=== PATIENT | female | born 1945 | race Caucasian/White ===

== ENCOUNTER 2016-07-19 16:24 | Emergency (ER) | payer MEDICARE ==
[2016-07-19] MEDS ORDERED: NS 0.9% 1000 ML* 1,000 ML IV SCH (18:45)
[2016-07-19 19:01] LABS: Hematocrit 45 % (35-47); Hemoglobin 15.5 g/dl (12.0-16.0); Mean Corpuscular HGB Conc 34 g/dl (31-36); Mean Corpuscular Hemoglobin 29 pg (27-31); Mean Corpuscular Volume 85 fL (80-97); Mean Platelet Volume 10 um3 (7.4-10.4); Red Blood Count 5.35 10^6/ul (4.0-5.4); Red Cell Distribution Width 15 % (10.5-15); White Blood Count 7.7 10^3/ul (3.5-10.8)
--- NOTE | 2016-07-19 19:02 | RAD ---
Indication: Dizziness. Single frontal view of the chest performed at 1842 hours was reviewed. No prior study is available for comparison. No mediastinal shift is noted. Heart is of normal size and configuration. Lung joiner appear clear. IMPRESSION: NO ACTIVE CARDIOPULMONARY DISEASE IS NOTED.
[2016-07-19 19:17] LABS: ALT 15 U/L (7-52); Albumin 3.9 g/dL (3.2-5.2); Alkaline Phosphatase 78 U/L (34-104); BUN/Creatinine Ratio 18.3 (8-20); Blood Urea Nitrogen 21 mg/dL (6-24); C Reactive Protein 1.55 mg/L (< 5.00); CO2 Carbon Dioxide 26 mmol/L (22-32); Calcium 9.6 mg/dL (8.6-10.3); Chloride 106 mmol/L (101-111); Creatine Kinase 80 U/L (10-223); EGFR Non-African American 46.6 (>60); Globulin 2.9 g/dL (2-4); Glucose 124 mg/dL (70-100); Lipase 26 U/L (11.0-82.0); Magnesium 2.4 mg/dL (1.9-2.7); Sodium 138 mmol/L (133-145); Total Protein 6.8 g/dL (6.4-8.9)
[2016-07-19 19:29] LABS: TSH (Thyroid Stimulating Horm) 0.37 mcIU/mL (0.34-5.60)
--- NOTE | 2016-07-19 21:49 | RAD ---
Indication: Dizziness. CT of the brain was performed without IV contrast. Ventricular structures are midline. No midline shift is noted. The extraction spaces are unremarkable. There is no evidence of intracranial mass or hemorrhage. No other high or low density lesions are identified. Mastoid air cells and paranasal sinuses are unremarkable. IMPRESSION: No intracranial mass or hemorrhage is noted.
[2016-07-19 22:46] VITALS: BP 116/70
--- NOTE | 2016-07-20 03:29 | ED ---
Osman Patel Claudia, scribed for Joseph Bellamy on 07/19/16 at 2022 . Complex/Multi-Sys Presentation - HPI Summary HPI Summary: 71 year old female presents to the ED with dizziness and skin diaphoresis. Pt notes she was at work this pm when she had an episode lasting a few minutes including dizziness and skin diaphoresis. Pt does not think she had any LOC. PMHx of AFib is noted. Pt denies any CP, SOB, with episode. - History Of Current Complaint Chief Complaint: EDDizziness Time Seen by Provider: 07/19/16 19:42 Hx Obtained From: Patient Onset/Duration: Sudden Onset, Resolved Timing: Intermittent, Lasting: - 10 minutes Associated Signs And Symptoms: Positive: Dizziness, Diaphoresis - Allergies/Home Medications Allergies/Adverse Reactions: Allergies Allergy/AdvReac Type Severity Reaction Status Date / Time Adhesive Tape Allergy Unknown Verified 02/23/16 09:40 Reaction Details Codeine Allergy Nausea And Verified 02/23/16 09:40 Vomiting Dronedarone [From Multaq] Allergy Unknown Verified 02/23/16 09:40 Reaction Details Latex Allergy Rash Verified 02/23/16 09:40 Lisinopril Allergy Unknown Verified 02/23/16 09:40 Reaction Details Metoprolol Allergy Unknown Verified 02/23/16 09:40 Reaction Details Nickel Allergy Unknown Verified 02/23/16 09:40 Reaction Details PMH/Surg Hx/FS Hx/Imm Hx Previously Healthy: Yes Endocrine/Hematology History: Denies: Hx Diabetes Cardiovascular History: Reports: Hx Hypertension Denies: Hx Pacemaker/ICD History: Denies: Hx Renal Disease Sensory History: Denies: Hx Hearing Aid Psychiatric History: Denies: Hx Panic Disorder - Cancer History Cancer Type, 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 Negative: Fever Eyes: Negative ENT: Negative Cardiovascular: Negative Negative: Chest Pain Respiratory: Negative Gastrointestinal: Negative Genitourinary: Negative Musculoskeletal: Negative Skin: Negative Neurological: Other - dizzy Psychological: Normal All Other Systems Reviewed And Are Negative: Yes Physical Exam Triage Information Reviewed: Yes Vital Signs On Initial Exam: Initial Vitals Temp Pulse Resp BP Pulse Ox 97.2 F 57 18 120/73 98 07/19/16 16:45 07/19/16 16:45 07/19/16 16:45 07/19/16 16:45 07/19/16 16:45 Vital Signs Reviewed: Yes Appearance: Positive: Well-Appearing, No Pain Distress Skin: Positive: Warm, Skin Color Reflects Adequate Perfusion, Dry Head/Face: Positive: Normal Head/Face Inspection Eyes: Positive: EOMI, CAR ENT: Positive: Normal ENT inspection Neck: Positive: Supple, Nontender Respiratory/Lung Sounds: Positive: Clear to Auscultation, Breath Sounds Present Cardiovascular: Positive: RRR, Pulses are Symmetrical in both Upper and Lower Extremities Abdomen Description: Positive: Nontender, Soft Musculoskeletal: Positive: Normal, Strength/ROM Intact Neurological: Positive: Normal, Sensory/Motor Intact, Alert, Oriented to Person Place, Time Diagnostics - Vital Signs Vital Signs Temp Pulse Resp BP Pulse Ox 07/19/16 19:00 54 13 96 07/19/16 18:00 58 16 96 07/19/16 17:00 64 12 95 07/19/16 16:59 56 12 95 07/19/16 16:45 97.2 F 57 18 120/73 98 - Laboratory Lab Results: Lab Results 07/19/16 07/19/16 07/19/16 Range/Units 17:25 17:25 17:25 WBC 7.7 (3.5-10.8) 10^3/ul RBC 5.35 (4.0-5.4) 10^6/ul Hgb 15.5 (12.0-16.0) g/dl Hct 45 (35-47) % MCV 85 (80-97) fL MCH 29 (27-31) pg MCHC 34 (31-36) g/dl RDW 15 (10.5-15) % Plt Count 206 (150-450) 10^3/ul MPV 10 (7.4-10.4) um3 Neut % (Auto) 65.0 (38-83) % Lymph % (Auto) 24.8 L (25-47) % Morrill % (Auto) 8.4 (1-9) % Eos % (Auto) 1.1 (0-6) % Baso % (Auto) 0.7 (0-2) % Absolute Neuts (auto) 5.0 (1.5-7.7) 10^3/ul Absolute Lymphs (auto) 1.9 (1.0-4.8) 10^3/ul Absolute Monos (auto) 0.6 (0-0.8) 10^3/ul Absolute Eos (auto) 0.1 (0-0.6) 10^3/ul Absolute Basos (auto) 0.1 (0-0.2) 10^3/ul Absolute Nucleated RBC 0.01 10^3/ul Nucleated RBC % 0.1 INR (Anticoag Therapy) 2.60 H (0.89-1.11) APTT 31.3 (26.0-36.3) seconds Sodium 138 (133-145) mmol/L Potassium TNP Chloride 106 (101-111) mmol/L Carbon Dioxide 26 (22-32) mmol/L Anion Gap TNP BUN 21 (6-24) mg/dL Creatinine 1.15 H (0.51-0.95) mg/dL Est GFR ( Amer) 60.0 (>60) Est GFR (Non-Af Amer) 46.6 (>60) BUN/Creatinine Ratio 18.3 (8-20) Glucose 124 H (70-100) mg/dL Lactic Acid (0.5-2.0) mmol/L Calcium 9.6 (8.6-10.3) mg/dL Magnesium 2.4 (1.9-2.7) mg/dL Total Bilirubin 0.60 (0.2-1.0) mg/dL AST TNP ALT 15 (7-52) U/L Alkaline Phosphatase 78 (34-104) U/L Total Creatine Kinase 80 (10-223) U/L CK-MB (CK-2) 3.6 (0.6-6.3) ng/mL Troponin I 0.00 (<0.04) ng/mL C-Reactive Protein 1.55 (< 5.00) mg/L B-Natriuretic Peptide ( - 100) pg/mL Total Protein 6.8 (6.4-8.9) g/dL Albumin 3.9 (3.2-5.2) g/dL Globulin 2.9 (2-4) g/dL Albumin/Globulin Ratio 1.3 (1-3) Lipase 26 (11.0-82.0) U/L TSH 0.37 (0.34-5.60) mcIU/mL 07/19/16 07/19/16 Range/Units 17:25 17:25 WBC (3.5-10.8) 10^3/ul RBC (4.0-5.4) 10^6/ul Hgb (12.0-16.0) g/dl Hct (35-47) % MCV (80-97) fL MCH (27-31) pg MCHC (31-36) g/dl RDW (10.5-15) % Plt Count (150-450) 10^3/ul MPV (7.4-10.4) um3 Neut % (Auto) (38-83) % Lymph % (Auto) (25-47) % Morrill % (Auto) (1-9) % Eos % (Auto) (0-6) % Baso % (Auto) (0-2) % Absolute Neuts (auto) (1.5-7.7) 10^3/ul Absolute Lymphs (auto) (1.0-4.8) 10^3/ul Absolute Monos (auto) (0-0.8) 10^3/ul Absolute Eos (auto) (0-0.6) 10^3/ul Absolute Basos (auto) (0-0.2) 10^3/ul Absolute Nucleated RBC 10^3/ul Nucleated RBC % INR (Anticoag Therapy) (0.89-1.11) APTT (26.0-36.3) seconds Sodium (133-145) mmol/L Potassium Chloride (101-111) mmol/L Carbon Dioxide (22-32) mmol/L Anion Gap BUN (6-24) mg/dL Creatinine (0.51-0.95) mg/dL Est GFR ( Amer) (>60) Est GFR (Non-Af Amer) (>60) BUN/Creatinine Ratio (8-20) Glucose (70-100) mg/dL Lactic Acid 1.4 (0.5-2.0) mmol/L Calcium (8.6-10.3) mg/dL Magnesium (1.9-2.7) mg/dL Total Bilirubin (0.2-1.0) mg/dL AST ALT (7-52) U/L Alkaline Phosphatase (34-104) U/L Total Creatine Kinase (10-223) U/L CK-MB (CK-2) (0.6-6.3) ng/mL Troponin I (<0.04) ng/mL C-Reactive Protein (< 5.00) mg/L B-Natriuretic Peptide 106 H ( - 100) pg/mL Total Protein (6.4-8.9) g/dL Albumin (3.2-5.2) g/dL Globulin (2-4) g/dL Albumin/Globulin Ratio (1-3) Lipase (11.0-82.0) U/L TSH (0.34-5.60) mcIU/mL Result Diagrams: 07/19/16 17:25 07/19/16 17:25 Lab Statement: Any lab studies that have been ordered have been reviewed, and results considered in the medical decision making process. - Radiology CXR Xray Interpretation: No Acute Changes Radiology Interpretation Completed By: Radiologist - CT BRAIN CT CT Interpretation: No Acute Changes - NO INTRACRANIAL MASS OR HEMMORHAGE IS NOTED. CT Interpretation Completed By: Radiologist - EKG 22:05 Cardiac Rate: NL EKG Rhythm: Sinus Rhythm - SINUS ARRYTHMIA Re-Evaluation - Re-Evaluation 1 Re-Evaluation Time: 22:14 Comment: RESULTS ARE DISCUSSED WITH PT AND SHE IS AGREEABLE WITH THE PLAN TO BE D/C HOME WITH F/O Complex Multi-Symp Course/Dx Assessment/Plan: AFTER WORKUP INCLUDING CXR ABD EKG AND CT BRAIN PT IS AGREEABLE WITH THE PLAN TO BE D/C HOME WIHT F/O WITH PCP THIS WEEK. - Diagnoses Provider Diagnoses: Dizziness Discharge - Discharge Plan Condition: Stable Disposition: HOME Patient Education Materials: Dizziness (ED) Referrals: Tonja Dowling MD [Primary Care Provider] - 3 Days The documentation as recorded by the Osman martinez Claudia accurately reflects the service I personally performed and the decisions made by , Joseph Bellamy.
== END 2016-07-19 22:44 | disposition home or self-care (01) ==
LOC: ED 16:24
DX: R42 Dizziness and giddiness (principal); Z86.79 Personal history of other diseases of the circulatory system
CPT/HCPCS: 36415; 70450; 71010; 80053; 82550; 82553; 83605; 83690; 83735; 83880; 84443; 84484; 85025; 85610; 85730; 86140; 93005; 96360; 99283

== ENCOUNTER 2016-12-26 04:59 | Emergency (ER) | payer MEDICARE ==
--- NOTE | 2016-12-26 05:39 | ED ---
Heath Patel Alok, scribed for Ethan Cook MD on 12/26/16 at 0523 . HPI Chest Pain - HPI Summary HPI Summary: 71F presents to the ED with CP since 02:30 this evening. Pt states that her CP is at the mid-sternal and still ongoing, described as an achy sensation. Pt states she has never had this pain before. Pt recently had a pacemaker put in place yesterday at [facility] for her A-fib and states she experienced a right shoulder pain afterwards. Pt took tramadol and tylenol yesterday for her shoulder pain. Pt is unable to take aspirin since she is on xareolto. Pt sees survey research teacher Dr. Levy. - History of Current Complaint Chief Complaint: EDChestPainROMI Time Seen by Provider: 12/26/16 05:15 Hx Obtained From: Patient Onset/Duration: Started Hours Ago, Atraumatic, Still Present Time of Onset: 02:30 Timing: Constant Initial Severity: Moderate Current Severity: Moderate Pain Intensity: 6 Pain Scale Used: 0-10 Numeric Chest Pain Location: Discrete at:, Mid Sternal Character: Dull/Aching Aggravating Factor(s): Nothing Alleviating Factor(s): Nothing Associated Signs and Symptoms: Positive: Chest Pain - Allergy/Home Medications Allergies/Adverse Reactions: Allergies Allergy/AdvReac Type Severity Reaction Status Date / Time Adhesive Tape Allergy Unknown Verified 02/23/16 09:40 Reaction Details Codeine Allergy Nausea And Verified 02/23/16 09:40 Vomiting Dronedarone [From Multaq] Allergy Unknown Verified 02/23/16 09:40 Reaction Details Latex Allergy Rash Verified 02/23/16 09:40 Lisinopril Allergy Unknown Verified 02/23/16 09:40 Reaction Details Metoprolol Allergy Unknown Verified 02/23/16 09:40 Reaction Details Nickel Allergy Unknown Verified 02/23/16 09:40 Reaction Details PMH/Surg Hx/FS Hx/Imm Hx Endocrine/Hematology History: Denies: Hx Diabetes Cardiovascular History: Reports: Hx Hypertension Denies: Hx Pacemaker/ICD History: Denies: Hx Renal Disease Sensory History: Denies: Hx Hearing Aid Psychiatric History: Denies: Hx Panic Disorder - Cancer History Cancer Type, 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 Hx Chemotherapy: No Hx Radiation Therapy: Yes - Surgical History Surgery Procedure, Year, and Place: Left Breast Lumpectomy 1998, Complete Hysterectomy 1999 Infectious Disease History: No Infectious Disease History: Denies: Traveled Outside the [place] in Last 30 Days - Family History Known Family History: Negative: Hypertension, Diabetes - Social History Occupation: Retired Lives: With Family Alcohol Use: None Substance Use Type: Reports: None Smoking Status (MU): Never Smoked Tobacco Review of Systems Positive: Chest Pain Positive: Other - right shoulder pain All Other Systems Reviewed And Are Negative: Yes Physical Exam Triage Information Reviewed: Yes Vital Signs On Initial Exam: Initial Vitals Temp Pulse Resp BP Pulse Ox 97.9 F 60 20 142/82 100 12/26/16 05:11 12/26/16 05:11 12/26/16 05:11 12/26/16 05:11 12/26/16 05:11 Vital Signs Reviewed: Yes Appearance: Positive: Well-Appearing, Pain Distress - mild discomfort Skin: Positive: Warm Head/Face: Positive: Normal Head/Face Inspection Eyes: Positive: CAR ENT: Positive: Hearing grossly normal Neck: Positive: Supple Respiratory/Lung Sounds: Positive: Clear to Auscultation, Breath Sounds Present , Other - healing pacemaker site, no drainage Cardiovascular: Positive: RRR - occassional extrasystoles Abdomen Description: Positive: Nontender, Soft Musculoskeletal: Positive: Strength/ROM Intact Neurological: Positive: Alert, Oriented to Person Place, Time Psychiatric: Positive: Affect/Mood Appropriate Diagnostics - Vital Signs Vital Signs Temp Pulse Resp BP Pulse Ox 12/26/16 05:11 97.9 F 60 20 142/82 100 - Laboratory Result Diagrams: 12/26/16 05:20 12/26/16 05:20 Lab Statement: Any lab studies that have been ordered have been reviewed, and results considered in the medical decision making process. - EKG 0512 Cardiac Rate: Other Rate - 72 bpm EKG Rhythm: Atrial Fibrillation Chest Pain Course/Dx - Diagnoses Provider Diagnoses: Chest pain Discharge - Discharge Plan Condition: Stable Disposition: HOME Patient Education Materials: Chest Pain (ED) Referrals: Dawit Levy MD [Medical Doctor] - 3 Days Tonja Dowling MD [Primary Care Provider] - 3 Days Additional Instructions: Follow up with Dr. Levy. Take the Tramadol 4 times a day for the pain. The documentation as recorded by the Heath martinez Alok accurately reflects the service I personally performed and the decisions made by me, Ethan Cook MD.
[2016-12-26] MEDS ORDERED: Morphine INJ* 2 MG/ML 1 ML SYRINGE IV ONE (05:43)
[2016-12-26 06:05] LABS: Hematocrit 47 % (35-47); Hemoglobin 15.3 g/dl (12.0-16.0); Mean Corpuscular HGB Conc 33 g/dl (31-36); Mean Corpuscular Hemoglobin 28 pg (27-31); Mean Corpuscular Volume 86 fL (80-97); Mean Platelet Volume 9 um3 (7.4-10.4); Red Blood Count 5.47 10^6/ul (4.0-5.4); Red Cell Distribution Width 16 % (10.5-15); White Blood Count 7.4 10^3/ul (3.5-10.8)
[2016-12-26 06:15] LABS: Albumin 4.1 g/dL (3.2-5.2); BUN/Creatinine Ratio 15.1 (8-20); Calcium 9.4 mg/dL (8.6-10.3); EGFR African American 83.9 (>60); EGFR Non-African American 65.2 (>60); Globulin 3.2 g/dL (2-4); Total Bilirubin 0.8 mg/dL (0.2-1.0); Total Protein 7.3 g/dL (6.4-8.9)
[2016-12-26 06:21] LABS: Troponin I 0.07 ng/mL (<0.04)
--- NOTE | 2016-12-26 07:57 | RAD ---
Indication: Chest pain 2 views of the chest including dual energy PA views demonstrates pacemaker leads in place. Heart is of normal size and configuration. Lungs are clear. No changes noted since previous exam of July 19, 2016. IMPRESSION: No active cardiopulmonary disease is noted.
[2016-12-26 09:35] VITALS: BP 130/79
--- NOTE | 2016-12-26 13:03 | ED ---
Amanda, Jarocho Mederos, scribed for Martin Orozco MD on 12/26/16 at 0731 . Progress - Progress Note Progress Note: The patient is a sign out from Dr. Cook to Dr. Orozco. - Results/Orders Results/Orders: The patient is a sign out from Dr. Cook to Dr. Orozco. 71F presents to the ED with CP since 02:30 this evening. Pt states that her CP is at the mid-sternal and still ongoing, described as an achy sensation. Pt states she has never had this pain before. Pt recently had a pacemaker put in place yesterday at [facility] for her A-fib and states she experienced a right shoulder pain afterwards. Pt took tramadol and tylenol yesterday for her shoulder pain. Pt is unable to take aspirin since she is on xareolto. Pt sees glass cut off supervisor Dr. Levy. Bloodwork reveals RBC 5.47, RDW 16, Lymph % 19.5, [place]% 10.0, Glucose 139, Troponin I 0.07. CXR reveals no active cardiopulmonary disease. In the ED course the patient was given morphine. - EKG/XRAY/CT XRAY: chest Xray Comments: No active cardiopulmonary disease Course/Dx - Course Course Of Treatment: ASSESSMENT AND PLAN: The patient is a sign out from Dr. Cook to Dr. Orozco. 71F presents to the ED with CP since 02:30 this evening. Pt states that her CP is at the mid-sternal and still ongoing, described as an achy sensation. Pt states she has never had this pain before. Pt recently had a pacemaker put in place yesterday at [facility] for her A-fib and states she experienced a right shoulder pain afterwards. Pt took tramadol and tylenol yesterday for her shoulder pain. Pt is unable to take aspirin since she is on xareolto. Pt sees glass cut off supervisor Dr. Levy. Bloodwork reveals RBC 5.47, RDW 16, Lymph % 19.5, [place]% 10.0, Glucose 139, Troponin I 0.07. CXR reveals no active cardiopulmonary disease. In the ED course the patient was given morphine. I consulted with Dr. Resendez, cardiology at [facility], at 09:30 who states that he believes that pain is not cardiac in nature. She is diagnosed with chest pain and will be discharged home. I have low suspicion for cardiac pain because her 2nd troponin is decreased. Because of her recent pacemaker surery and her loop and event recorder removal, it is my thought that her pain is from her surgeries. She will follow up with Dr. Levy and was instructed to take Tramadol as directed. - Diagnoses Provider Diagnoses: Chest pain - Provider Notifications Discussed Care Of Patient With: Jonathan Du Time Discussed With Above Provider: 08:22 Instructed by Provider To: Other - Discussed patient care. Dr. Du wants me to call [facility]. I also consulted with Dr. Resendez, cardiology at [facility], at 09:30 who states that he believes that pain is not cardiac in nature. The documentation as recorded by the Gatito martinez Thomas accurately reflects the service I personally performed and the decisions made by me, Martin Orozco MD.
== END 2016-12-26 09:59 | disposition home or self-care (01) ==
LOC: ED 04:59
DX: R07.9 Chest pain, unspecified (principal); M25.511 Pain in right shoulder
CPT/HCPCS: 36415; 71020; 80053; 83605; 84484; 85025; 85379; 93005; 96374; 99283